=== PATIENT | male | born 1980 | race Caucasian/White ===

== ENCOUNTER 2023-09-26 08:53 | Outpatient (CLI) | payer OTHER, SELFPAY ==
--- NOTE | ~2023-09-26 | MR_ITS ---
EXAMINATION: MR knee RT wo con DATE: 09/26/2023 09:27 INDICATION: Right knee osteoarthritis TECHNIQUE: Magnetic resonance imaging (MRI) of the right knee was performed without intravenous contr ast. Sequences included coronal PD-weighted FSE, coronal PD-weighted FS FSE, sagittal T2-weighted FS E, sagittal PD-weighted FS FSE and axial PD weighted fat saturated FSE. COMPARISON: None. FINDINGS: Medial compartment: Medial meniscus is normal. Articular cartilage is normal. Lateral compartment: Lateral meniscus is normal. Articular cartilage is normal. Patellofemoral compartment: Full-thickness near full-thickness patellar chondral fissuring at the apical ridge and medial facet s ubarticular edema-like signal changes and small central subchondral osteophytes along the adjacent la teral margin of the medial patellar facet. There is additional partial thickness chondral fissuring a t the central aspect of the adjacent trochlear groove. Ligaments and tendons: Anterior and posterior cruciate ligaments are normal. The medial collateral ligament and fibular edilberto ateral ligament complex are normal. Tolerated tendon is normal. Mild distal quadriceps tendinopathy w ithout tear. The visualized medial and lateral hamstring tendons as well as the iliotibial band are n ormal. Fluid: Physiologic amount of fluid in the joint space. No loose osteochondral bodies identified. Small Esquivel 's cyst. Osseous/other: Small low signal intensity bone islands at the medial and lateral femoral condyles. No fracture or pa thologic marrow replacing process. IMPRESSION: 1. 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 2. Small Esquivel's cyst. 2. Mild distal quadriceps tendinopathy without tear. Reviewed, dictated and finalized at location A. IMPRESSION: 1. Mild and patellofemoral osteoarthritis with regions of high-grade patellar a nd moderate grade trochlear chondromalacia. 2. Small Esquivel's cyst. 2. Mild distal quadriceps tendinopathy without tear.
== END 2023-09-26 08:54 ==
LOC: GOSHIMG 08:54
PROVIDERS: PCP Physician Assistant; Visit Provider Physician Assistant
DX: M17.11 Unilateral primary osteoarthritis, right knee (principal); M94.261 Chondromalacia, right knee; M71.21 Synovial cyst of popliteal space [Baker], right knee
CPT/HCPCS: 73721

== ENCOUNTER 2024-07-01 10:54 | Outpatient (CLI) | payer OTHER, SELFPAY ==
--- NOTE | ~2024-07-01 | XR_ITS ---
Left ankle Technique: AP, oblique, and lateral views were obtained. Clinical History: Status post fall Findings: No acute fracture or dislocation is seen. Osseous alignment is anatomic. Ankle mortise and other visualized joint spaces are preserved. Soft tissues are otherwise unremarkable. Impression: Unremarkable left ankle. Reviewed, dictated and finalized at [facility]. OF HUMAN RESOURCES Impression: Unremarkable left ankle.
== END 2024-07-01 10:55 | disposition home or self-care (01) ==
PROVIDERS: PCP Family Medicine; Visit Provider Family Medicine
DX: M25.572 Pain in left ankle and joints of left foot (principal); W19.XXXA Unspecified fall, initial encounter
CPT/HCPCS: 73610